=== PATIENT | female | born 1945 | race Caucasian/White ===

== ENCOUNTER 2017-10-05 05:50 | Day surgery (SDC) | payer MEDICARE, OTHER ==
[~2017-10-05] VITALS: Ht 160 cm; Wt 90.7 kg
[~2017-10-05 05:50] MED LIST: ASPI81CH PO; ATOR20 PO; CLOB.05TO; CYAN500 SL; Coq-10100 MG PO; Cranberry300 MG PO; FOLI400 PO; IBUP800 PO; LOSARTAN-HCTZ1 EACH PO; MAGOXI400 PO; MUPI1NAS; PROBIOTIC1 EAC1 PO; VITAMIN B6 PO; VITAMIN D32000 UNIT PO; [UNRECOGNIZED DRUG - OTHER] PO
[2017-10-06 04:48] LABS: BASOPHILS ABSOLUTE AUTO 0.02 K/mm3 (0.00-0.23); BASOPHILS PERCENT AUTO 0 % (0-2); EOSINOPHILS PERCENT AUTO 0 % (0-6); Hematocrit 33.6 % (33.0-51.0); Hemoglobin 11.1 g/dL (11.5-16.0); IMMATURE GRAN ABSOLUTE AUTO 0.09 K/mm3 (0.00-0.10); IMMATURE GRAN PERCENT AUTO 1 % (0-1); LYMPHOCYTES ABSOLUTE AUTO 1.75 K/mm3 (0.84-5.20); LYMPHOCYTES PERCENT AUTO 9 % (21-46); MONOCYTES ABSOLUTE AUTO 1.47 K/mm3 (0.16-1.47); MONOCYTES PERCENT AUTO 8 % (4-13); Mean Corpuscular HGB 28.5 pg (26.0-34.0); Mean Corpuscular Volume 86 fL (80-100); Mean Platelet Volume 9.4 fL (9.1-12.4); NEUTROPHILS ABSOLUTE AUTO 15.25 K/mm3 (1.96-9.15); NEUTROPHILS PERCENT AUTO 82 % (41-73); Platelet Count 284 K/mm3 (150-400); Red Blood Cell Count 3.89 M/mm3 (3.80-5.20); White Blood Cell Count 18.58 K/mm3 (4.00-11.30)
[2017-10-06 05:03] LABS: Anion Gap 7 mmol/L (6-16); Blood Urea Nitrogen 12 mg/dL (8-24); Bun/Creatinine Ratio 27.8 (12.0-20.0); CO2, Blood 29 mmol/L (21-32); Calcium, Blood 8.3 mg/dL (8.5-10.1); Chloride, Blood 103 mmol/L (98-108); Creatinine, Blood 0.43 mg/dL (0.40-1.00); Glomerular Filtration Rate >60 (60-); Glucose, Blood 120 mg/dL (70-99); Potassium, Blood 3.8 mmol/L (3.5-5.5); Sodium, Blood 139 mmol/L (136-145)
[2017-10-06] MEDS ORDERED: XARELTO10 MG PO (07:56)
[2017-10-06] MEDS ORDERED: Percocet 5-3251 EACH PO (08:02)
== END 2017-10-06 10:30 | disposition home or self-care (01) ==
LOC: SURS 05:50 → PRE IP 05:50 → ORSCMMR 05:50 → SURS 05:50 → EDSTATUS 07:30 → PRE IP 07:30 → SURS 10:47 → ORSCMMR 10-06 10:30 → SURS 10-06 10:30
PROVIDERS: Orthopaedic Surgery
PROC: 0SRC0JA Replacement of Right Knee Joint with Synthetic Substitute, Uncemented, Open Approach (ICD-10-PCS; principal; 2017-10-05 07:30)
DX: M17.11 Unilateral primary osteoarthritis, right knee (principal); I10 Essential (primary) hypertension; I25.10 Atherosclerotic heart disease of native coronary artery without angina pectoris; E66.01 Morbid (severe) obesity due to excess calories; Z68.35 Body mass index [BMI] 35.0-35.9, adult; Z79.899 Other long term (current) drug therapy; Z79.82 Long term (current) use of aspirin
CPT/HCPCS: 36415; 73560-RT; 80048; 85025; 86850; 86900; 86901; 88300; 97110; 97161; 97530; C1776; G8978; G8979; J0171; J0690; J0735; J1100; J1170; J1885; J2250; J2370; J2405; J2765; J2795; J3010; J7120

== ENCOUNTER → 2018-03-08 | Outpatient (CLI) | payer MEDICARE, OTHER ==
[~2018-03-08] MED LIST changes: +Percocet 5-3251 EACH PO; +XARELTO10 MG PO
[2018-03-08 12:14] LABS: Source, Urine Clean Catch
[2018-03-08 13:55] LABS: Bilirubin, Urine Neg (Neg); Blood, Urine 5+ (Neg); Glucose Qualitative, Urine Neg (Neg); Ketones, Urine Neg (Neg); Leukocyte Esterase, Urine 3+ (Neg); Nitrite, Urine Neg (Neg); Protein, Urine 2+ (Neg); Specific Gravity, Urine 1.005 (1.003-1.022); Urobilinogen, Urine NORM (Normal)
[2018-03-08 14:04] LABS: Appearance, Urine Clear (Clear); White Blood Cells, Urine TNTC /hpf (0-5)
[2018-03-08 14:05] LABS: Bacteria Few /hpf; Red Blood Cells, Urine 25-50 /hpf (0-2); Squamous Epithelial Cells Few /hpf (Few)
== END | disposition home or self-care (01) ==
LOC: LAB SHORT 12:12 → OLS 12:12
PROVIDERS: Internal Medicine
DX: N39.0 Urinary tract infection, site not specified (principal)
CPT/HCPCS: 81001; 87077; 87086; 87186

== ENCOUNTER → 2019-03-30 | Outpatient (CLI) | payer MEDICARE, OTHER ==
[2019-03-30 13:14] LABS: Source, Urine Clean Catch
[2019-03-30 13:56] LABS: Bilirubin, Urine Neg (Neg); Blood, Urine 4+ (Neg); Glucose Qualitative, Urine Neg (Neg); Ketones, Urine Neg (Neg); Leukocyte Esterase, Urine 2+ (Neg); Nitrite, Urine Neg (Neg); Protein, Urine Neg (Neg); Urobilinogen, Urine NORM (Normal)
[2019-03-30 14:09] LABS: Appearance, Urine Clear (Clear); Color, Urine Yellow (P-Yellow)
[2019-03-30 14:11] LABS: Bacteria Few /hpf; Squamous Epithelial Cells Few /hpf (Few)
== END | disposition home or self-care (01) ==
LOC: LAB 13:13 → LAB SHORT 13:13
PROVIDERS: Internal Medicine
DX: N39.0 Urinary tract infection, site not specified (principal)
CPT/HCPCS: 81001; 87077; 87086; 87186

== ENCOUNTER → 2019-04-05 | Outpatient (CLI) | payer MEDICARE, OTHER ==
[2019-04-05 07:28] LABS: Source, Urine Clean Catch
[2019-04-05 08:16] LABS: Bilirubin, Urine Neg (Neg); Blood, Urine Neg (Neg); Glucose Qualitative, Urine Neg (Neg); Ketones, Urine Neg (Neg); Leukocyte Esterase, Urine Neg (Neg); Nitrite, Urine Neg (Neg); Protein, Urine Neg (Neg); Specific Gravity, Urine 1.005 (1.003-1.022); Urobilinogen, Urine NORM (Normal); pH, Urine 6.5 (5.0-8.0)
[2019-04-05 08:17] LABS: Appearance, Urine Clear (Clear); Color, Urine Yellow (P-Yellow)
== END | disposition home or self-care (01) ==
LOC: LAB 07:27 → LAB SHORT 07:27
PROVIDERS: Internal Medicine
DX: N39.0 Urinary tract infection, site not specified (principal)
CPT/HCPCS: 81003

== ENCOUNTER → 2019-06-30 | Outpatient (CLI) | payer MEDICARE, OTHER | END | disposition home or self-care (01) | LOC: LAB SHORT 09:40 → LAB 09:40 | DX: R39.15 Urgency of urination (principal) | CPT/HCPCS: 87077; 87086; 87186 ==

== ENCOUNTER → 2019-07-13 | Outpatient (CLI) | payer MEDICARE, OTHER | END | disposition home or self-care (01) | LOC: LAB SHORT 06:30 → LAB 06:30 → LAB FUT 06-21 13:15 | PROVIDERS: Internal Medicine | DX: Z00.01 Encounter for general adult medical examination with abnormal findings (principal) | CPT/HCPCS: 81050 ==

== ENCOUNTER 2019-08-29 23:59 | Emergency (ER) | payer MEDICARE, OTHER ==
[~2019-08-29] VITALS: Ht 160 cm; Wt 86.2 kg
[2019-08-30] MEDS ORDERED: VALSARTAN-HCTZ1 EACH PO (00:04)
[2019-08-30 01:00] LABS: Source, Urine Voided
[2019-08-30 01:03] LABS: Appearance, Urine Clear (Clear); BASOPHILS ABSOLUTE AUTO 0.04 K/mm3 (0.00-0.23); BASOPHILS PERCENT AUTO 0 % (0-2); Bilirubin, Urine Neg (Neg); Blood, Urine 1+ (Neg); Color, Urine Yellow (P-Yellow); EOSINOPHILS ABSOLUTE AUTO 0.43 K/mm3 (0.00-0.68); EOSINOPHILS PERCENT AUTO 4 % (0-6); Glucose Qualitative, Urine Neg (Neg); Hematocrit 42.9 % (33.0-51.0); Hemoglobin 13.9 g/dL (11.5-16.0); IMMATURE GRAN ABSOLUTE AUTO 0.03 K/mm3 (0.00-0.10); IMMATURE GRAN PERCENT AUTO 0 % (0-1); Ketones, Urine Neg (Neg); LYMPHOCYTES ABSOLUTE AUTO 3.73 K/mm3 (0.84-5.20); LYMPHOCYTES PERCENT AUTO 33 % (21-46); Leukocyte Esterase, Urine 1+ (Neg); MONOCYTES ABSOLUTE AUTO 0.91 K/mm3 (0.16-1.47); MONOCYTES PERCENT AUTO 8 % (4-13); Mean Corpuscular HGB 28.9 pg (26.0-34.0); Mean Corpuscular HGB Conc 32.4 g/dL (31.5-36.5); Mean Corpuscular Volume 89 fL (80-100); Mean Platelet Volume 9.6 fL (9.1-12.4); NEUTROPHILS ABSOLUTE AUTO 6.27 K/mm3 (1.96-9.15); NEUTROPHILS PERCENT AUTO 55 % (41-73); Nitrite, Urine Neg (Neg); Platelet Count 313 K/mm3 (150-400); Protein, Urine Neg (Neg); RDW Coefficient Variation 13.2 % (11.7-14.2); Red Blood Cell Count 4.81 M/mm3 (3.80-5.20); Urobilinogen, Urine NORM (Normal); White Blood Cell Count 11.41 K/mm3 (4.00-11.30); pH, Urine 6.5 (5.0-8.0)
[2019-08-30 01:14] LABS: Red Blood Cells, Urine 0-2 /hpf (0-2); Squamous Epithelial Cells Few /hpf (Few)
[2019-08-30 01:15] LABS: Alanine Aminotransfer (ALT/SGP 36 U/L (12-78); Albumin/Globulin Ratio 1.1 (0.8-1.8); Alk Phos 164 U/L (50-136); Anion Gap 6 mmol/L (6-16); Aspartate Aminotrans (AST/SGOT 27 U/L (12-37); Bacteria Few /hpf; Bilirubin, Total 0.2 mg/dL (0.1-1.0); Blood Urea Nitrogen 16 mg/dL (8-24); Bun/Creatinine Ratio 32.1 (12.0-20.0); CO2, Blood 28 mmol/L (21-32); Calcium, Blood 9.3 mg/dL (8.5-10.1); Chloride, Blood 108 mmol/L (98-108); Globulin, Blood 3.7 g/dL (2.2-4.0); Glomerular Filtration Rate >60 (60-); Glucose, Blood 122 mg/dL (70-99); Potassium, Blood 3.8 mmol/L (3.5-5.5); Sodium, Blood 142 mmol/L (136-145); Total Protein, Blood 7.7 g/dL (6.4-8.2)
[2019-08-30] MEDS ORDERED: MECL12.5 PO (02:39)
== END 2019-08-30 02:57 | disposition home or self-care (01) ==
LOC: ER 23:59
PROVIDERS: Emergency Medicine
DX: R42 Dizziness and giddiness (principal); I10 Essential (primary) hypertension; E78.00 Pure hypercholesterolemia, unspecified; R01.1 Cardiac murmur, unspecified; Z79.899 Other long term (current) drug therapy
CPT/HCPCS: 36415; 80053; 81001; 85025; 87086; 93005; 93010; 99284-25

== ENCOUNTER → 2020-10-07 | Outpatient (CLI) | payer MEDICARE, OTHER ==
[~2020-10-07] MED LIST changes: +MECL12.5 PO; +VALSARTAN-HCTZ1 EACH PO
[2020-10-09 15:09] LABS: HPV 16 Negative (Negative); HPV 18 Negative (Negative); HPV OTHER HR TYPES Negative (Negative)
== END | disposition home or self-care (01) ==
LOC: LAB 19:36 → LAB SHORT 19:36
PROVIDERS: Obstetrics & Gynecology
DX: Z01.419 Encounter for gynecological examination (general) (routine) without abnormal findings (principal)
CPT/HCPCS: 87624; G0123

== ENCOUNTER 2022-05-25 07:06 | Day surgery (SDC) | payer MEDICARE, OTHER ==
[~2022-05-25] VITALS: Ht 160 cm; Wt 91.0 kg
[2022-05-25] MEDS ORDERED: Aspir 8181 MG PO (07:44)
--- NOTE | 2022-05-25 10:06 | NUR ---
PT RETURNED TO RECOVERY ROOM IN [facility]. RIGHT RADIAL TR BAND SITE SOFT NON-TENDER WITH NO HEMATOMA, NO PULSATILE BLEEDING AND WRIST BOARD IN PLACE. SP02 PROBE ON RIGHT INDEX FINGER.
--- NOTE | 2022-05-25 10:46 | NUR ---
DR GRAY IN ROOM TO SEE PT.
--- NOTE | 2022-05-25 12:02 | NUR ---
DISCHARGE INSTRUCTIONS REVIEWED; ALL QUESTIONS ANSWERED.
--- NOTE | 2022-05-25 12:14 | NUR ---
10 CC OF AIR REMOVED OUT OF NOW DEFLATED RIGHT TR BAND OVER 10 MIN; NO HEMATOMA, NO PULSATILE BLEEDING. PT'S IN ROOM. CALL LIGHT IN REACH.
--- NOTE | 2022-05-25 12:20 | NUR ---
NO CHANGES TO DEFLATED RIGHT TR BAND.
--- NOTE | 2022-05-25 12:35 | NUR ---
NO CHANGES TO DEFLATED RIGHT TR BAND SITE.
--- NOTE | 2022-05-25 13:15 | NUR ---
DEFLATED RIGHT TR BAND REMOVED AND POLYMEM PLACED OVER SITE WITH WRIST BOARD IN PLACE; SOFT WITH NO HEMATOMA, NO PULSATILE BLEEDING. 20 G IV DISCONTINUED FROM RIGHT AC WITH INTACT CANNULA. PT ESCORTED OUT VIA WHEELCHAIR ESCORT.
== END 2022-05-25 13:10 | disposition home or self-care (01) ==
LOC: MHTC 07:06
PROC: 4A023N7 Measurement of Cardiac Sampling and Pressure, Left Heart, Percutaneous Approach (ICD-10-PCS; principal; 2022-05-25)
PROC: B2111ZZ Fluoroscopy of Multiple Coronary Arteries using Low Osmolar Contrast (ICD-10-PCS; principal; 2022-05-25)
DX: I25.10 Atherosclerotic heart disease of native coronary artery without angina pectoris (principal); I35.0 Nonrheumatic aortic (valve) stenosis; I11.0 Hypertensive heart disease with heart failure; I50.32 Chronic diastolic (congestive) heart failure; E78.5 Hyperlipidemia, unspecified; Q21.1 Atrial septal defect; Z87.891 Personal history of nicotine dependence; Z79.899 Other long term (current) drug therapy; Z88.1 Allergy status to other antibiotic agents
CPT/HCPCS: 76937; 85347; 93454; 93571; 99152; 99153; A9270; C1769; C1887; C1894; J1644; J2250; J3010; J7030; J7040; Q9967

== ENCOUNTER 2022-07-14 07:45 | Day surgery (SDC) | payer MEDICARE, OTHER ==
[~2022-07-14] VITALS: Ht 160 cm; Wt 89.0 kg
[~2022-07-14 07:45] MED LIST changes: +Aspir 8181 MG PO; +VALS80 PO
--- NOTE | 2022-07-14 19:13 | NUR ---
SHIFT SUMMARY WAS INITIALLY NAUSEATED AFTER TRYING SOME BITES OF LUNCH BUT RESOLVED EASILY w/ 1 DOSE OF PHENERGAN & A SHORT NAP. PAIN HAS BEEN WELL CONTROLLED. WOKRED w/ THERAPY. EATING, DRINKING, VOIDING. JEFFERY [employer].
[2022-07-15 05:48] LABS: Bun/Creatinine Ratio 33.9 (12.0-20.0); Calcium, Blood 8.7 mg/dL (8.5-10.1); Creatinine, Blood 0.44 mg/dL (0.40-1.00); Potassium, Blood 4.1 mmol/L (3.5-5.5)
--- NOTE | 2022-07-15 06:06 | NUR ---
SHIFT SUMMARY NO ACUTE CHANGES. PT RESTED WELL T/O NIGHT. TYLENOL/TORADOL/1 CAR FOR PAIN MANAGEMENT. DRESSING TO L KNEE REMAINS CDI WITH POLAR PACK IN PLACE. UP WITH 1 ASSIST USING FWW/GB TO AMBULATE. USES CALL LIGHT APPROPRIATELY.
[2022-07-15 07:58] LABS: BASOPHILS ABSOLUTE AUTO 0.03 K/mm3 (0.00-0.23); BASOPHILS PERCENT AUTO 0 % (0-2); EOSINOPHILS ABSOLUTE AUTO 0.22 K/mm3 (0.00-0.68); EOSINOPHILS PERCENT AUTO 2 % (0-6); Hematocrit 36.4 % (33.0-51.0); Hemoglobin 12.2 g/dL (11.5-16.0); IMMATURE GRAN ABSOLUTE AUTO 0.03 K/mm3 (0.00-0.10); IMMATURE GRAN PERCENT AUTO 0 % (0-1); LYMPHOCYTES ABSOLUTE AUTO 1.63 K/mm3 (0.84-5.20); LYMPHOCYTES PERCENT AUTO 15 % (21-46); MONOCYTES ABSOLUTE AUTO 1.14 K/mm3 (0.16-1.47); MONOCYTES PERCENT AUTO 11 % (4-13); Mean Corpuscular HGB 29.4 pg (26.0-34.0); Mean Corpuscular HGB Conc 33.5 g/dL (31.5-36.5); Mean Corpuscular Volume 88 fL (80-100); Mean Platelet Volume 9.6 fL (9.1-12.4); NEUTROPHILS ABSOLUTE AUTO 7.57 K/mm3 (1.96-9.15); NEUTROPHILS PERCENT AUTO 71 % (41-73); Platelet Count 274 K/mm3 (150-400); RDW Coefficient Variation 13.2 % (11.7-14.2); RDW Standard Deviation 42.3 fL (35.1-46.3); Red Blood Cell Count 4.15 M/mm3 (3.80-5.20); White Blood Cell Count 10.62 K/mm3 (4.00-11.30)
[2022-07-15] MEDS ORDERED: Percocet 5-3251 EACH PO (09:07)
--- NOTE | 2022-07-15 11:08 | NUR ---
DISCHARGE SUMMARY PT POD #1 FOR L TKA. [address] WITH [place] WRAP CDI. PT WORKED WELL WITH PHYSICAL THERAPY AND C/O MINIMAL PAIN. PT C/O PAINFUL SPOT IN L CALF. EXAMINED CALF AND FOUND NO NODULES/REDNESS. PT BELIEVES IT MAY BE FROM WORKING WITH PHYSICAL THERAPY. THIS RN ENCOURAGED PT TO CALL DOCTOR GOMEZ IF CALF PAIN WORSENS OR IF OTHER S/S DVT BECOME PRESENT. DC'D HOME WITH .
== END 2022-07-15 11:15 | disposition home or self-care (01) ==
LOC: ORSCMMR 07:45 → ORD 09:15 → ORSCMMR 09:15 → ORD 10:45 → SURS 11:50 → ORD 12:30 → ORSCMMR 07-15 11:15
PROVIDERS: Orthopaedic Surgery
PROC: 0SRD0JA Replacement of Left Knee Joint with Synthetic Substitute, Uncemented, Open Approach (ICD-10-PCS; principal; 2022-07-14 09:15)
PROC: 8E0Y0CZ Robotic Assisted Procedure of Lower Extremity, Open Approach (ICD-10-PCS; principal; 2022-07-14 09:15)
DX: M17.12 Unilateral primary osteoarthritis, left knee (principal); E78.5 Hyperlipidemia, unspecified; I10 Essential (primary) hypertension; Z79.899 Other long term (current) drug therapy; Z79.82 Long term (current) use of aspirin; E66.9 Obesity, unspecified; Z68.34 Body mass index [BMI] 34.0-34.9, adult
CPT/HCPCS: 27447; 20985; S2900; 36415; 73560-LT; 80048; 85025; 97110; 97116; 97162; A9270; C1776; J0171; J0690; J0735; J1885; J2370; J2550; J2704; J2795; J3010; J7120